=== PATIENT | male | born 1975 | race Caucasian/White ===

== ENCOUNTER 2017-11-02 14:16 | Inpatient (IN) | payer MEDICAID ==
[~2017-11-02] VITALS: Ht 182.9 cm; Wt 109.0 kg
[2017-11-02 14:59] LABS: Basophils # (auto) 0.1 uL; Eosinophils # (auto) 0.4 uL; Eosinophils % (auto) 2.8 % (0.0-7.0); Mean Corpuscular Volume 89.1 fL (80.0-100.0); Platelet Count (auto) 252 10^3/uL (140-450)
[2017-11-02 15:01] LABS: Basophils % (auto) 0.8 % (0.0-2.0); Hematocrit 52.7 % (41.0-53.0); Lymphocytes % (auto) 21.1 % (10.0-50.0); Mean Corpuscular Hemoglobin 30.4 pg (28.0-32.0); Mean Corpuscular Hgb Conc. 34.1 g/dL (32.0-36.0); Monocytes # (auto) 1.4 uL; Monocytes % (auto) 9.5 % (0.0-12.0); Neutrophils # (auto) 9.4 uL; Neutrophils % (auto) 65.8 % (37.0-80.0); Nucleated Red Blood Cells % 0.6 %; Red Blood Cells 5.91 10^6/uL (4.5-5.90); Red Cell Distribution Width 13.6 % (11.8-14.3); White Blood Cell 14.2 10^3/uL (4.4-10.8)
[2017-11-02 15:05] LABS: Alanine Aminotransferase 37 U/L (16-61); Albumin 4.3 g/dL (3.4-5.0); Anion Gap 10 (5-15); Aspartate Aminotransferase 23 U/L (15-37); BUN/Creatinine Ratio 8.7; Blood Urea Nitrogen 9 mg/dL (7-18); Calcium 9.6 mg/dL (8.5-10.1); Carbon Dioxide 21 mmol/L (21-32); Chloride 104 mmol/L (98-107); GFR African American 101 mL/min; GFR Non-African American 84 mL/min; Glucose 90 mg/dL (74-106); Potassium 4.3 mmol/L (3.5-5.1); Sodium 135 mmol/L (136-145)
[2017-11-02 15:10] LABS: Alkaline Phosphatase 84 U/L (45-117); Bilirubin, Total 0.6 mg/dL (0.2-1.0); Total Protein 7.9 g/dL (6.4-8.2)
[2017-11-02] MEDS ORDERED: SODIUM CHLORIDE 0.9% 1,000 ML IV ONE (15:14)
[2017-11-02] MEDS ORDERED: ASPirin 81 mg TAB PO ONE (15:15)
[2017-11-02] MEDS ORDERED: NITROGLYCERIN 0.4 MG SL TAB SL ONE (16:15)
[2017-11-02] MEDS ORDERED: LORazepam 0.5 MG TAB PO PRN (16:30)
[2017-11-02] MEDS ORDERED: ZOLPIDEM TARTRATE 5 MG TAB PO PRN (16:30)
[2017-11-02] MEDS ORDERED: NITROGLYCERIN 0.4 MG SL TAB SL PRN ×2 (16:30)
[2017-11-02] MEDS ORDERED: MORPHINE SULFATE 8mg/ml INJ SDV IV PRN ×2 (16:30)
[2017-11-02] MEDS ORDERED: ALUM & MAG HYDROX-SIMETH LIQ(MAALOX) 30 ML PO ONE (16:30)
[2017-11-02] MEDS ORDERED: cloNIDine HCL 0.1 MG TAB PO PRN (16:30)
[2017-11-02] MEDS ORDERED: ONDANSETRON HCL 4 MG/2 ML VIAL IV PRN (16:30)
[2017-11-02 17:05] LABS: INR 0.96 (0.9-1.15); Prothrombin Time 10.5 sec (9.37-12.3)
[2017-11-02 20:00] VITALS: BP 146/88
[2017-11-02 21:34] LABS: Urine Bacteria NONE SEEN /hpf (None Seen); Urine Blood Negative /uL (Negative); Urine Specific Gravity 1.019 (1.001-1.035); Urine WBC <1 /hpf (0 - 3)
[2017-11-02] MEDS: SODIUM CHLOR 0.9% PF (SALINE LOCK) 10ML VIAL/SYR IV SCH (22:56)
[2017-11-02] MEDS: CARVEDILOL 3.125 MG TAB PO SCH (22:57)
[2017-11-02] MEDS: ENALAPRIL MALEATE 2.5 MG TAB PO SCH (22:58)
[2017-11-02] MEDS: ATORVASTATIN 20 MG TAB PO SCH (22:59)
[2017-11-03] VITALS (7 sets, daily range): BP systolic 122–146; BP diastolic 71–92
[2017-11-03] MEDS: SODIUM CHLOR 0.9% PF (SALINE LOCK) 10ML VIAL/SYR IV SCH ×3 (06:46→21:37)
[2017-11-03 06:56] LABS: Basophils # (auto) 0.1 uL; Basophils % (auto) 1.1 % (0.0-2.0); Eosinophils # (auto) 0.4 uL; Eosinophils % (auto) 4.9 % (0.0-7.0); Hematocrit 48.2 % (41.0-53.0); Hemoglobin 16.9 g/dL (13.5-17.5); Lymphocytes # (auto) 2.7 uL; Lymphocytes % (auto) 33.1 % (10.0-50.0); Mean Corpuscular Hemoglobin 31.4 pg (28.0-32.0); Mean Corpuscular Volume 89.7 fL (80.0-100.0); Monocytes # (auto) 0.8 uL; Monocytes % (auto) 9.4 % (0.0-12.0); Neutrophils # (auto) 4.3 uL; Neutrophils % (auto) 51.5 % (37.0-80.0); Nucleated Red Blood Cells % 0.2 %; Platelet Count (auto) 217 10^3/uL (140-450); Red Blood Cells 5.37 10^6/uL (4.5-5.90); Red Cell Distribution Width 13.5 % (11.8-14.3); White Blood Cell 8.2 10^3/uL (4.4-10.8)
[2017-11-03 07:06] LABS: Potassium 4.2 mmol/L (3.5-5.1)
[2017-11-03 07:18] LABS: Albumin 3.8 g/dL (3.4-5.0); BUN/Creatinine Ratio 10.5; Magnesium 2.7 mg/dL (1.6-2.6); Total Protein 7.1 g/dL (6.4-8.2)
[2017-11-03 07:24] LABS: Bilirubin, Total 0.6 mg/dL (0.2-1.0)
[2017-11-03] MEDS: DOCUSATE SOD 100 MG CAP PO SCH (09:23)
[2017-11-03] MEDS: CLOPIDOGREL BISULFATE 75 MG TAB PO SCH (09:24)
[2017-11-03] MEDS: ASPirin 81 mg TAB PO SCH (09:24)
[2017-11-03] MEDS: ENALAPRIL MALEATE 2.5 MG TAB PO SCH ×2 (09:24→21:34)
[2017-11-03] MEDS: CARVEDILOL 3.125 MG TAB PO SCH ×2 (09:25→21:33)
[2017-11-03] MEDS: ATORVASTATIN 20 MG TAB PO SCH (21:33)
[2017-11-04 05:00] VITALS: BP 122/75
[2017-11-04] MEDS: SODIUM CHLOR 0.9% PF (SALINE LOCK) 10ML VIAL/SYR IV SCH ×2 (06:22→14:04)
[2017-11-04 09:17] VITALS: BP 124/85
[2017-11-04] MEDS: ASPirin 81 mg TAB PO SCH (10:35)
[2017-11-04] MEDS: DOCUSATE SOD 100 MG CAP PO SCH (10:35)
[2017-11-04] MEDS: CARVEDILOL 3.125 MG TAB PO SCH (10:36)
[2017-11-04] MEDS: CLOPIDOGREL BISULFATE 75 MG TAB PO SCH (10:36)
[2017-11-04] MEDS: ENALAPRIL MALEATE 2.5 MG TAB PO SCH (10:37)
[2017-11-04 13:00] VITALS: BP 127/83
[2017-11-04 14:24] VITALS: BP 112/83
== END 2017-11-04 15:45 | disposition home or self-care (01) | DRG 470 ==
LOC: ER 14:16 → TELE 14:17 → TELE-EAST 19:14
PROVIDERS: ADMIT Internal Medicine; ATTEND Internal Medicine Pulmonary Disease
DX: I12.9 Hypertensive chronic kidney disease with stage 1 through stage 4 chronic kidney disease, or unspecified chronic kidney disease (principal); E87.1 Hypo-osmolality and hyponatremia; I25.118 Atherosclerotic heart disease of native coronary artery with other forms of angina pectoris; N18.2 Chronic kidney disease, stage 2 (mild); D75.1 Secondary polycythemia; Z91.14 Patient's other noncompliance with medication regimen; Z82.49 Family history of ischemic heart disease and other diseases of the circulatory system
CPT/HCPCS: 36415; 71045; 80053; 80061; 81001; 83735; 83880; 84443; 84484; 85025; 85610; 93005; 93306; 96360

== ENCOUNTER 2021-12-25 17:49 | Inpatient (IN) | payer MEDICAID ==
[~2021-12-25] VITALS: Ht 177.8 cm; Wt 120.0 kg
[2021-12-25] MEDS ORDERED: SODIUM CHLORIDE 0.9% 1,000 ML IVB ONE (18:00)
[2021-12-25] MEDS ORDERED: HEPARIN SODIUM (PORCINE) 5000 UNITS/ML 1ML VIAL IV ONE (18:00)
[2021-12-25] MEDS ORDERED: NITROGLYCERIN 0.4 MG SL TAB SL ONE (18:04)
[2021-12-25] MEDS ORDERED: CLOPIDOGREL BISULFATE 75 MG TAB PO ONE (18:15)
[2021-12-25] MEDS ORDERED: ANGIOMAX 250 MG VIAL IV ONE ×2 (18:19→19:07)
[2021-12-25] MEDS ORDERED: VERAPAMIL 2.5MG/ML INJ 2ML VIAL IV ONE (18:20)
[2021-12-25] MEDS ORDERED: HEPARIN SODIUM (PORCINE) 5000 UNITS/ML 1ML VIAL ONE (18:20)
[2021-12-25] MEDS ORDERED: MIDAZOLAM HCL 2MG/2ML 2ml VIAL (1mg/ml) ONE (18:20)
[2021-12-25] MEDS ORDERED: fentaNYL CITRATE 100 MCG/2 ML VL ONE (18:20)
[2021-12-25] MEDS ORDERED: SODIUM CHL 0.9% 50 ML ONE ×2 (18:20→19:07)
[2021-12-25] MEDS ORDERED: IODIXANOL 320MG/ML 100ML BTL IV ONE ×2 (18:21→18:59)
[2021-12-25] MEDS ORDERED: LIDOCAINE 2%HCL (LOCAL ANESTH.) INJ 10ml MDV ONE (18:22)
[2021-12-25 18:33] LABS: Basophils # (auto) 0.2 10 ^3/uL (0-0.2); Eosinophils # (auto) 0.2 10 ^3/uL (0-0.8); Eosinophils % (auto) 1.2 % (0.0-7.0); Hematocrit 51.4 % (41.0-53.0); Hemoglobin 17.7 g/dL (13.5-17.5); Monocytes # (auto) 1.3 10 ^3/uL (0-1.3)
[2021-12-25 18:35] LABS: Basophils % (auto) 0.8 % (0.0-2.0); Lymphocytes # (auto) 3.2 10 ^3/uL (0.4-5.4); Lymphocytes % (auto) 16.5 % (10.0-50.0); Mean Corpuscular Hemoglobin 30.8 pg (28.0-32.0); Mean Corpuscular Hgb Conc. 34.5 g/dL (32.0-36.0); Mean Corpuscular Volume 89.2 fL (80.0-100.0); Monocytes % (auto) 6.8 % (0.0-12.0); Neutrophils # (auto) 14.5 10 ^3/uL (1.6-8.6); Neutrophils % (auto) 74.7 % (37.0-80.0); Nucleated Red Blood Cells % 0.2 %; Red Blood Cells 5.77 10^6/uL (4.5-5.90); Red Cell Distribution Width 13.3 % (11.8-14.3); White Blood Cell 19.4 10^3/uL (4.4-10.8)
[2021-12-25 18:54] LABS: Albumin 4.1 g/dL (3.4-5.0); Anion Gap 10 (5-15); Blood Urea Nitrogen 13 mg/dL (7-18); Calcium 9.1 mg/dL (8.5-10.1); Carbon Dioxide 22 mmol/L (21-32); Chloride 106 mmol/L (98-107); Glucose 139 mg/dL (74-106); Magnesium 2.5 mg/dL (1.6-2.6); Potassium 4.3 mmol/L (3.5-5.1); Sodium 138 mmol/L (136-145)
[2021-12-25 18:58] LABS: Alanine Aminotransferase 46 U/L (16-61); Alkaline Phosphatase 85 U/L (45-117); Aspartate Aminotransferase 33 U/L (15-37); BUN/Creatinine Ratio 10.2; Bilirubin, Total 0.4 mg/dL (0.2-1.0); Cholesterol 173 mg/dL (< 200); GFR African American 78 mL/min; GFR Non-African American 65 mL/min; HDL Cholesterol 27 mg/dL (40-59); Total Protein 7.3 g/dL (6.4-8.2); Triglycerides 452 mg/dL (< 150)
[2021-12-25] MEDS ORDERED: ATROPINE SULF 1 MG/10ml SYR ONE (18:59)
[2021-12-25] MEDS ORDERED: TICAGRELOR 90 MG TAB ONE (19:11)
[2021-12-25] MEDS ORDERED: EPTIFIBATIDE INJ (2MG/ML) 10ML VIAL IV ONE (19:13)
[2021-12-25] MEDS ORDERED: PHENYLEPHRINE HCL 10 MG/ML VL ONE (19:22)
[2021-12-25] MEDS ORDERED: MORPHINE SULFATE INJ 2 MG/ml SYRG IV PRN (19:45)
[2021-12-25] MEDS ORDERED: ACETAMINOPHEN 500 MG TAB PO PRN (19:45)
[2021-12-25] MEDS ORDERED: NITROGLYCERIN 0.4 MG SL TAB SL PRN (19:45)
[2021-12-25] MEDS ORDERED: SOD CHL 0.45% 1,000 ML IV ONE (19:45)
[2021-12-25 21:30] VITALS: BP 129/81
[2021-12-25 21:45] VITALS: BP 120/81
[2021-12-25] MEDS: LISINOPRIL 5 MG TAB PO SCH (21:53)
[2021-12-25] MEDS: TICAGRELOR 90 MG TAB PO SCH (21:53)
[2021-12-25] MEDS: CARVEDILOL 3.125 MG TAB PO SCH (21:54)
[2021-12-25 22:00] VITALS: BP_SYST 116; BP_SYST 120; BP_DIAS 77; BP_DIAS 87
[2021-12-25 22:15] VITALS: BP 121/84
[2021-12-25] MEDS ORDERED: LOSA25TA2 PO (22:19)
[2021-12-25] MEDS ORDERED: ATEN50TA PO (22:19)
[2021-12-25 23:00] VITALS: BP 123/72
[2021-12-26] VITALS: BP 120/69
[2021-12-26 01:00] VITALS: BP 129/83
[2021-12-26 05:00] VITALS: BP 119/74
[2021-12-26 06:09] LABS: Basophils # (auto) 0.1 10 ^3/uL (0-0.2); Basophils % (auto) 0.6 % (0.0-2.0); Eosinophils # (auto) 0.1 10 ^3/uL (0-0.8); Eosinophils % (auto) 0.5 % (0.0-7.0); Hematocrit 45.6 % (41.0-53.0); Lymphocytes # (auto) 2.2 10 ^3/uL (0.4-5.4); Mean Corpuscular Hemoglobin 31.2 pg (28.0-32.0); Mean Corpuscular Hgb Conc. 35.2 g/dL (32.0-36.0); Mean Corpuscular Volume 88.6 fL (80.0-100.0); Monocytes # (auto) 1.3 10 ^3/uL (0-1.3); Monocytes % (auto) 8.4 % (0.0-12.0); Neutrophils % (auto) 76.5 % (37.0-80.0); Red Blood Cells 5.15 10^6/uL (4.5-5.90); Red Cell Distribution Width 13.1 % (11.8-14.3); White Blood Cell 15.7 10^3/uL (4.4-10.8)
[2021-12-26 06:25] LABS: Albumin 3.6 g/dL (3.4-5.0); Calcium 8.6 mg/dL (8.5-10.1); Magnesium 2.3 mg/dL (1.6-2.6)
[2021-12-26 06:28] LABS: BUN/Creatinine Ratio 13.8; Bilirubin, Total 0.7 mg/dL (0.2-1.0); Total Protein 6.7 g/dL (6.4-8.2)
[2021-12-26 09:21] VITALS: BP 114/67
[2021-12-26] MEDS: TICAGRELOR 90 MG TAB PO SCH (09:32)
[2021-12-26] MEDS: CARVEDILOL 3.125 MG TAB PO SCH (09:32)
[2021-12-26] MEDS: LISINOPRIL 5 MG TAB PO SCH (09:33)
[2021-12-26] MEDS ORDERED: FENOFIBRATE 50 MG PO SCH (10:00)
[2021-12-26] MEDS ORDERED: ATORVASTATIN 20 MG TAB PO SCH (10:00)
[2021-12-26] MEDS ORDERED: ASPirin-EC 81 mg tab PO SCH (10:00)
[2021-12-26] MEDS ORDERED: NITROGLYCERIN 0.4 MG SL TAB SL ONE (10:00)
[2021-12-26] MEDS ORDERED: PANTOPRAZOLE 40 MG TAB PO SCH (10:00)
[2021-12-26] MEDS ORDERED: ATO40T PO (10:01)
[2021-12-26] MEDS ORDERED: ASPI-498 OR (10:01)
[2021-12-26] MEDS ORDERED: CLOP75TA28 PO (10:01)
[2021-12-26] MEDS ORDERED: CLOPIDOGREL 300 MG TAB PO ONE (12:00)
[2021-12-26] MEDS ORDERED: METOPROLOL TARTRATE 25 MG TAB PO SCH (22:00)
== END 2021-12-26 12:15 | disposition home or self-care (01) | DRG 247 ==
LOC: EDBD 17:49 → ER 17:49 → TELE 19:39 → TELE-CENTR 21:00
PROVIDERS: ADMIT Internal Medicine; ATTEND Internal Medicine
PROC: 027036Z Dilation of Coronary Artery, One Artery with Three Drug-eluting Intraluminal Devices, Percutaneous Approach (ICD-10-PCS; principal; 2021-12-25)
PROC: 02C03ZZ Extirpation of Matter from Coronary Artery, One Artery, Percutaneous Approach (ICD-10-PCS; 2021-12-25)
PROC: 4A023N7 Measurement of Cardiac Sampling and Pressure, Left Heart, Percutaneous Approach (ICD-10-PCS; 2021-12-25)
PROC: B211YZZ Fluoroscopy of Multiple Coronary Arteries using Other Contrast (ICD-10-PCS; 2021-12-25)
PROC: B215YZZ Fluoroscopy of Left Heart using Other Contrast (ICD-10-PCS; 2021-12-25)
PROC: 3E073PZ Introduction of Platelet Inhibitor into Coronary Artery, Percutaneous Approach (ICD-10-PCS; 2021-12-25)
PROC: 3E073PZ Introduction of Platelet Inhibitor into Coronary Artery, Percutaneous Approach (ICD-10-PCS; 2021-12-25)
DX: I21.3 ST elevation (STEMI) myocardial infarction of unspecified site (principal); E66.9 Obesity, unspecified; F17.210 Nicotine dependence, cigarettes, uncomplicated; I10 Essential (primary) hypertension; I25.10 Atherosclerotic heart disease of native coronary artery without angina pectoris; E78.1 Pure hyperglyceridemia; E78.5 Hyperlipidemia, unspecified; Z79.02 Long term (current) use of antithrombotics/antiplatelets; Z79.82 Long term (current) use of aspirin; Z79.899 Other long term (current) drug therapy
CPT/HCPCS: 36415; 71045; 80053; 80061; 83036; 83735; 84443; 84484; 85025; 92929; 92933; 93005; 93306; 93458; 96361; 96374; 99152; 99153; 99291; C1874; C1887; G0378; J2001; J2250; Q9967